=== PATIENT | male | born 1980 | race African-American/Black ===

== ENCOUNTER 2017-03-12 06:13 | Inpatient (IN) | payer MEDICAID ==
[~2017-03-12] VITALS: Ht 182.9 cm; Wt 82.9 kg
[2017-03-12] MEDS ORDERED: INSLAN SQ (06:23)
[2017-03-12] MEDS ORDERED: METF500T4 PO (06:23)
[2017-03-12 06:59] LABS: BASOPHILS % (AUTO) 0.4 % (0.0-2.0); EOSINOPHILS % (AUTO) 2.6 % (1.0-6.0); HEMATOCRIT 38.4 % (41-53); LYMPHOCYTES # (AUTO) 2.4 K/uL (1.0-4.8); LYMPHOCYTES % (AUTO) 34.8 % (22.0-44.0); MEAN CORPUSCULAR HEMOGLOBIN 28.8 pg (26.0-34.0); MEAN CORPUSCULAR HGB CONC 33.7 G/dL (31.0-37.0); MEAN CORPUSCULAR VOLUME 85 fL (80-100); MONOCYTES # (AUTO) 0.4 K/uL (0.1-1.0); MONOCYTES % (AUTO) 6.2 % (2.0-9.0); NEUTROPHILS # (AUTO) 3.8 K/uL (1.8-7.7); PLATELET COUNT (AUTO) 277 K/uL (150-450); RED CELL DISTRIBUTION WIDTH 13.3 % (11.5-14.5); WHITE BLOOD COUNT (AUTO) 6.8 K/uL (4.5-11.0)
[2017-03-12] MEDS ORDERED: HALOPERIDOL 5 MG TABLET PO PRN (07:00)
[2017-03-12] MEDS ORDERED: LORazepam 2 MG TABLET PO PRN (07:00)
[2017-03-12] MEDS ORDERED: ZOLPIDEM TARTRATE 10 MG TABLET PO PRN (07:00)
[2017-03-12 07:32] LABS: ANION GAP 9 mmol/L (8-16); CARBON DIOXIDE 25 mmol/L (22-29); CHLORIDE 103 mmol/L (98-107); CREATININE 1.04 mg/dL (0.60-1.30); POTASSIUM 3.4 mmol/L (3.5-5.1); SODIUM SERUM 137 mmol/L (136-145); UREA NITROGEN, BLOOD 19 mg/dL (7-18)
[2017-03-12 07:33] LABS: CALCIUM, TOTAL 8.6 mg/dL (8.8-10.5); GLOMERULAR FILTR. RATE CALC > 60 mL/min (>60)
[2017-03-12 07:36] LABS: ALANINE AMINOTRANSFERASE 26 U/L (12-78); ALBUMIN 3.2 g/dL (3.4-5.0); ASPARTATE AMINOTRANSFERASE 13 U/L (15-37); BILIRUBIN,TOTAL 0.6 mg/dL (0.1-1.0)
[2017-03-12 09:11] LABS: CHOL/HDL RATIO 6.6 (4.2-7.3); THYROID STIMULATING HORMONE 0.84 uIU/mL (0.36-3.74)
[2017-03-12 09:18] LABS: GLUCOSE,POINT OF CARE 246 MG/DL (70-110)
[2017-03-12 10:06] VITALS: BP 116/66
[2017-03-12] MEDS ORDERED: DEXTROSE 50%-WATER 25 GM/50 ML SYRINGE IVP PRN (10:15)
[2017-03-12] MEDS ORDERED: POTASSIUM CHLORIDE 20 MEQ ER TABLET PO ONE (10:15)
[2017-03-12 11:34] LABS: GLUCOSE,POINT OF CARE 254 MG/DL (70-110)
[2017-03-12] MEDS: INSULIN ASPART 100 UNITS/ML SQ PRN ×3 (11:48→21:04)
[2017-03-12] MEDS ORDERED: IBUPROFEN 400 MG TABLET PO PRN (15:45)
[2017-03-12] MEDS ORDERED: ACETAMINOPHEN 325 MG TABLET PO PRN (15:45)
[2017-03-12 16:15] VITALS: BP 120/78
[2017-03-12 17:23] LABS: GLUCOSE,POINT OF CARE 268 MG/DL (70-110)
[2017-03-12] MEDS: INSULIN DETEMIR 100 UNITS/ML SQ SCH (21:04)
[2017-03-12] MEDS: SIMVASTATIN 10 MG TABLET PO SCH (21:08)
[2017-03-12 21:09] LABS: GLUCOSE,POINT OF CARE 187 MG/DL (70-110)
[2017-03-13 05:35] LABS: GLUCOSE COMMENT 1 Received Meds; GLUCOSE,POINT OF CARE 176 MG/DL (70-110)
[2017-03-13] MEDS: INSULIN ASPART 100 UNITS/ML SQ PRN ×4 (06:49→21:40)
[2017-03-13 07:28] LABS: POTASSIUM 4.5 mmol/L (3.5-5.1); THYROID STIMULATING HORMONE 0.39 uIU/mL (0.36-3.74)
[2017-03-13 07:38] LABS: HEMOGLOBIN A1C 11.8 % (4.5-6.2)
[2017-03-13 08:05] VITALS: BP 107/63
[2017-03-13 11:17] LABS: GLUCOSE,POINT OF CARE 217 MG/DL (70-110)
[2017-03-13 16:29] VITALS: BP 113/74
[2017-03-13] MEDS: DIVALPROEX SODIUM 500 MG DR TABLET PO SCH (17:11)
[2017-03-13 17:23] LABS: GLUCOSE,POINT OF CARE 279 MG/DL (70-110)
[2017-03-13] MEDS: SIMVASTATIN 10 MG TABLET PO SCH (21:00)
[2017-03-13 21:18] LABS: GLUCOSE,POINT OF CARE 247 MG/DL (70-110)
[2017-03-13] MEDS: INSULIN DETEMIR 100 UNITS/ML SQ SCH (21:39)
[2017-03-14 06:28] LABS: GLUCOSE,POINT OF CARE 194 MG/DL (70-110)
[2017-03-14] MEDS: INSULIN ASPART 100 UNITS/ML SQ PRN ×4 (07:19→21:00)
[2017-03-14] MEDS: DIVALPROEX SODIUM 500 MG DR TABLET PO SCH ×2 (09:09→17:25)
[2017-03-14] MEDS: CITALOPRAM HYDROBROMIDE 20 MG TABLET PO SCH (09:10)
[2017-03-14 10:06] VITALS: BP 103/65
[2017-03-14 11:43] LABS: GLUCOSE,POINT OF CARE 230 MG/DL (70-110)
[2017-03-14 16:23] VITALS: BP 124/74
[2017-03-14 17:32] LABS: GLUCOSE COMMENT 1 FASTING; GLUCOSE,POINT OF CARE 166 MG/DL (70-110)
[2017-03-14] MEDS: SIMVASTATIN 10 MG TABLET PO SCH (20:21)
[2017-03-14 20:33] LABS: GLUCOSE,POINT OF CARE 250 MG/DL (70-110)
[2017-03-14] MEDS: INSULIN DETEMIR 100 UNITS/ML SQ SCH (21:00)
[2017-03-15 05:17] VITALS: BP 131/74
[2017-03-15 05:48] LABS: GLUCOSE COMMENT 1 Received Meds; GLUCOSE,POINT OF CARE 152 MG/DL (70-110)
[2017-03-15] MEDS: INSULIN ASPART 100 UNITS/ML SQ PRN ×4 (06:45→21:35)
[2017-03-15 08:43] VITALS: BP 111/73
[2017-03-15] MEDS: CITALOPRAM HYDROBROMIDE 20 MG TABLET PO SCH (09:16)
[2017-03-15] MEDS: DIVALPROEX SODIUM 500 MG DR TABLET PO SCH ×2 (09:16→17:00)
[2017-03-15 11:53] LABS: GLUCOSE,POINT OF CARE 205 MG/DL (70-110)
[2017-03-15 16:30] VITALS: BP 118/70
[2017-03-15 17:07] LABS: GLUCOSE,POINT OF CARE 189 MG/DL (70-110)
[2017-03-15] MEDS: INSULIN DETEMIR 100 UNITS/ML SQ SCH (21:35)
[2017-03-15] MEDS: SIMVASTATIN 10 MG TABLET PO SCH (21:36)
[2017-03-15 21:43] LABS: GLUCOSE,POINT OF CARE 367 MG/DL (70-110)
[2017-03-16 06:22] LABS: GLUCOSE,POINT OF CARE 271 MG/DL (70-110)
[2017-03-16] MEDS: INSULIN ASPART 100 UNITS/ML SQ PRN ×4 (07:08→20:06)
[2017-03-16 09:33] VITALS: BP 107/63
[2017-03-16] MEDS: CITALOPRAM HYDROBROMIDE 20 MG TABLET PO SCH (10:01)
[2017-03-16] MEDS: DIVALPROEX SODIUM 500 MG DR TABLET PO SCH ×2 (10:01→17:15)
[2017-03-16 11:59] LABS: GLUCOSE,POINT OF CARE 186 MG/DL (70-110)
[2017-03-16 16:58] VITALS: BP 110/60
[2017-03-16 17:32] LABS: GLUCOSE,POINT OF CARE 182 MG/DL (70-110)
[2017-03-16] MEDS: INSULIN DETEMIR 100 UNITS/ML SQ SCH (20:05)
[2017-03-16] MEDS: SIMVASTATIN 10 MG TABLET PO SCH (20:06)
[2017-03-16 20:12] LABS: GLUCOSE,POINT OF CARE 238 MG/DL (70-110)
[2017-03-17 06:13] VITALS: BP 101/71
[2017-03-17 06:43] LABS: GLUCOSE COMMENT 1 Received Meds; GLUCOSE,POINT OF CARE 152 MG/DL (70-110)
[2017-03-17] MEDS: INSULIN ASPART 100 UNITS/ML SQ PRN ×4 (06:58→20:54)
[2017-03-17 08:05] VITALS: BP 114/57
[2017-03-17] MEDS: CITALOPRAM HYDROBROMIDE 20 MG TABLET PO SCH (10:13)
[2017-03-17] MEDS: DIVALPROEX SODIUM 500 MG DR TABLET PO SCH ×2 (10:13→17:12)
[2017-03-17 11:22] LABS: GLUCOSE,POINT OF CARE 191 MG/DL (70-110)
[2017-03-17 16:34] VITALS: BP 111/61
[2017-03-17 17:17] LABS: GLUCOSE,POINT OF CARE 281 MG/DL (70-110)
[2017-03-17] MEDS: SIMVASTATIN 10 MG TABLET PO SCH (20:23)
[2017-03-17] MEDS: INSULIN DETEMIR 100 UNITS/ML SQ SCH (20:53)
[2017-03-17 21:17] LABS: GLUCOSE COMMENT 1 Received Meds; GLUCOSE,POINT OF CARE 344 MG/DL (70-110)
[2017-03-18 06:22] LABS: GLUCOSE,POINT OF CARE 206 MG/DL (70-110)
[2017-03-18] MEDS: INSULIN ASPART 100 UNITS/ML SQ PRN ×2 (07:02→11:54)
[2017-03-18] MEDS ORDERED: DIVA500T35 PO (08:35)
[2017-03-18] MEDS ORDERED: CITA20TA9 PO (08:35)
[2017-03-18] MEDS ORDERED: INSLAN SQ (08:36)
[2017-03-18] MEDS ORDERED: SIMV-259 PO (08:36)
[2017-03-18 09:19] VITALS: BP 109/58
[2017-03-18] MEDS: DIVALPROEX SODIUM 500 MG DR TABLET PO SCH (09:38)
[2017-03-18] MEDS: CITALOPRAM HYDROBROMIDE 20 MG TABLET PO SCH (09:38)
[2017-03-18 11:53] LABS: GLUCOSE COMMENT 1 Received Meds; GLUCOSE,POINT OF CARE 197 MG/DL (70-110)
== END 2017-03-18 14:51 | disposition home or self-care (01) | DRG 754 ==
LOC: EMS 06:15 → 3EI 07:53
PROVIDERS: ADMIT Psychiatry & Neurology Psychiatry; ATTEND Psychiatry & Neurology Psychiatry
DX: F32.9 Major depressive disorder, single episode, unspecified (principal); R45.851 Suicidal ideations; R44.3 Hallucinations, unspecified; E11.9 Type 2 diabetes mellitus without complications; E78.5 Hyperlipidemia, unspecified; E87.6 Hypokalemia; Z71.51 Drug abuse counseling and surveillance of drug abuser; F19.10 Other psychoactive substance abuse, uncomplicated
CPT/HCPCS: 82962; 83036; 84132; 84439; 84443; 99285; G0480

== ENCOUNTER 2017-04-10 13:27 | Inpatient (IN) | payer MEDICAID ==
[~2017-04-10] VITALS: Ht 182.9 cm; Wt 84.1 kg
[~2017-04-10 13:27] MED LIST: CITA20TA9 PO; DIVA500T35 PO; INSLAN SQ; SIMV-259 PO
[2017-04-10] MEDS ORDERED: METF500T4 PO (13:37)
[2017-04-10 13:43] LABS: GLUCOSE,POINT OF CARE 370 MG/DL (70-110)
[2017-04-10 14:01] LABS: BASOPHILS % (AUTO) 0.7 % (0.0-2.0); EOSINOPHILS % (AUTO) 3.2 % (1.0-6.0); HEMATOCRIT 38.8 % (41-53); HEMOGLOBIN 13.1 g/dL (13.5-17.5); LYMPHOCYTES # (AUTO) 1.8 K/uL (1.0-4.8); LYMPHOCYTES % (AUTO) 32.2 % (22.0-44.0); MEAN CORPUSCULAR HEMOGLOBIN 28.7 pg (26.0-34.0); MEAN CORPUSCULAR HGB CONC 33.8 G/dL (31.0-37.0); MEAN CORPUSCULAR VOLUME 85 fL (80-100); MONOCYTES # (AUTO) 0.5 K/uL (0.1-1.0); MONOCYTES % (AUTO) 9.5 % (2.0-9.0); NEUTROPHILS % (AUTO) 54.4 % (40.0-70.0); PLATELET COUNT (AUTO) 266 K/uL (150-450); RED BLOOD CELL COUNT(AUTO) 4.57 MIL/uL (4.50-5.90); RED CELL DISTRIBUTION WIDTH 13.9 % (11.5-14.5); WHITE BLOOD COUNT (AUTO) 5.6 K/uL (4.5-11.0)
[2017-04-10] MEDS ORDERED: INSULIN REGULAR, HUMAN 100 UNITS/ML IVP ONE (14:15)
[2017-04-10] MEDS ORDERED: SODIUM CHLORIDE 0.9% 1,000 ML IV ONE (14:15)
[2017-04-10 14:17] LABS: ANION GAP 10 mmol/L (8-16); CARBON DIOXIDE 24 mmol/L (22-29); CHLORIDE 99 mmol/L (98-107); CREATININE 1.21 mg/dL (0.60-1.30); GLOMERULAR FILTR. RATE CALC > 60 mL/min (>60); POTASSIUM 4.1 mmol/L (3.5-5.1); SODIUM SERUM 133 mmol/L (136-145); UREA NITROGEN, BLOOD 27 mg/dL (7-18)
[2017-04-10 14:20] LABS: ALANINE AMINOTRANSFERASE 28 U/L (12-78); ALBUMIN 3.7 g/dL (3.4-5.0); ASPARTATE AMINOTRANSFERASE 19 U/L (15-37); BILIRUBIN,TOTAL 1.2 mg/dL (0.1-1.0); TOTAL PROTEIN, SERUM 7.4 g/dL (6.4-8.2)
[2017-04-10] MEDS ORDERED: HALOPERIDOL 5 MG TABLET PO PRN (16:15)
[2017-04-10] MEDS ORDERED: LORazepam 2 MG TABLET PO PRN (16:15)
[2017-04-10 16:27] LABS: GLUCOSE COMMENT 1 Doctor Notified; GLUCOSE,POINT OF CARE 187 MG/DL (70-110)
[2017-04-10 17:53] VITALS: BP 119/74
[2017-04-10] MEDS ORDERED: DEXTROSE 50%-WATER 25 GM/50 ML SYRINGE IVP PRN (18:45)
[2017-04-10] MEDS: DIVALPROEX SODIUM 500 MG DR TABLET PO SCH (18:49)
[2017-04-10] MEDS ORDERED: INSULIN DETEMIR 100 UNITS/ML SQ SCH (21:00)
[2017-04-10] MEDS: INSULIN ASPART 100 UNITS/ML SQ PRN ×2 (21:37→21:43)
[2017-04-10 21:43] LABS: GLUCOSE COMMENT 1 Received Meds; GLUCOSE,POINT OF CARE 269 MG/DL (70-110)
[2017-04-11 06:13] LABS: GLUCOSE,POINT OF CARE 166 MG/DL (70-110)
[2017-04-11] MEDS: MetFORMIN HCL 500 MG TABLET PO SCH ×2 (06:48→17:28)
[2017-04-11] MEDS: INSULIN ASPART 100 UNITS/ML SQ PRN ×4 (06:50→21:17)
[2017-04-11 10:06] VITALS: BP 105/57
[2017-04-11] MEDS: CITALOPRAM HYDROBROMIDE 20 MG TABLET PO SCH (11:37)
[2017-04-11] MEDS: SIMVASTATIN 10 MG TABLET PO SCH (11:37)
[2017-04-11] MEDS: DIVALPROEX SODIUM 500 MG DR TABLET PO SCH ×2 (11:37→17:24)
[2017-04-11 12:04] LABS: GLUCOSE COMMENT 1 Received Meds; GLUCOSE,POINT OF CARE 216 MG/DL (70-110)
[2017-04-11 16:30] VITALS: BP 110/69
[2017-04-11] MEDS ORDERED: IBUPROFEN 400 MG TABLET PO PRN (16:45)
[2017-04-11] MEDS ORDERED: ACETAMINOPHEN 325 MG TABLET PO PRN (16:45)
[2017-04-11 17:28] LABS: GLUCOSE,POINT OF CARE 164 MG/DL (70-110)
[2017-04-11 20:58] LABS: GLUCOSE,POINT OF CARE 164 MG/DL (70-110)
[2017-04-11] MEDS: INSULIN DETEMIR 100 UNITS/ML SQ SCH (21:16)
[2017-04-11] MEDS: ZOLPIDEM TARTRATE 10 MG TABLET PO PRN (21:26)
[2017-04-12 05:43] LABS: GLUCOSE COMMENT 1 Received Meds; GLUCOSE,POINT OF CARE 206 MG/DL (70-110)
[2017-04-12 06:31] VITALS: BP 111/68
[2017-04-12] MEDS: INSULIN ASPART 100 UNITS/ML SQ PRN ×3 (06:44→17:27)
[2017-04-12] MEDS: MetFORMIN HCL 500 MG TABLET PO SCH ×2 (07:07→17:02)
[2017-04-12 08:00] LABS: ANION GAP 7 mmol/L (8-16); CALCIUM, TOTAL 9.1 mg/dL (8.8-10.5); CARBON DIOXIDE 27 mmol/L (22-29); CHLORIDE 105 mmol/L (98-107); CREATININE 0.69 mg/dL (0.60-1.30); GLOMERULAR FILTR. RATE CALC > 60 mL/min (>60); POTASSIUM 4.3 mmol/L (3.5-5.1); SODIUM SERUM 139 mmol/L (136-145); UREA NITROGEN, BLOOD 16 mg/dL (7-18)
[2017-04-12 08:05] VITALS: BP 123/77
[2017-04-12] MEDS: SIMVASTATIN 10 MG TABLET PO SCH (08:18)
[2017-04-12] MEDS: CITALOPRAM HYDROBROMIDE 20 MG TABLET PO SCH (08:18)
[2017-04-12] MEDS: DIVALPROEX SODIUM 500 MG DR TABLET PO SCH ×2 (08:18→17:02)
[2017-04-12 11:53] LABS: GLUCOSE COMMENT 1 Received Meds; GLUCOSE,POINT OF CARE 184 MG/DL (70-110)
[2017-04-12 17:08] LABS: GLUCOSE COMMENT 1 FASTING; GLUCOSE,POINT OF CARE 208 MG/DL (70-110)
[2017-04-12 17:20] VITALS: BP 123/85
[2017-04-12] MEDS: ZOLPIDEM TARTRATE 10 MG TABLET PO PRN (20:09)
[2017-04-12 20:28] LABS: GLUCOSE,POINT OF CARE 130 MG/DL (70-110)
[2017-04-12] MEDS: INSULIN DETEMIR 100 UNITS/ML SQ SCH (21:25)
[2017-04-13 06:23] LABS: GLUCOSE,POINT OF CARE 123 MG/DL (70-110)
[2017-04-13] MEDS: INSULIN ASPART 100 UNITS/ML SQ PRN ×4 (06:58→20:25)
[2017-04-13] MEDS: MetFORMIN HCL 500 MG TABLET PO SCH ×2 (07:01→17:18)
[2017-04-13 08:39] VITALS: BP 131/57
[2017-04-13] MEDS: CITALOPRAM HYDROBROMIDE 20 MG TABLET PO SCH (09:43)
[2017-04-13] MEDS: SIMVASTATIN 10 MG TABLET PO SCH (09:43)
[2017-04-13] MEDS: DIVALPROEX SODIUM 500 MG DR TABLET PO SCH ×2 (09:43→16:43)
[2017-04-13 11:48] LABS: GLUCOSE,POINT OF CARE 189 MG/DL (70-110)
[2017-04-13 16:48] LABS: GLUCOSE COMMENT 1 Received Meds; GLUCOSE,POINT OF CARE 194 MG/DL (70-110)
[2017-04-13 19:30] VITALS: BP 122/78
[2017-04-13] MEDS: INSULIN DETEMIR 100 UNITS/ML SQ SCH (20:24)
[2017-04-13 20:27] LABS: GLUCOSE COMMENT 1 Received Meds; GLUCOSE,POINT OF CARE 297 MG/DL (70-110)
[2017-04-13] MEDS: ZOLPIDEM TARTRATE 10 MG TABLET PO PRN (20:40)
[2017-04-14 06:23] LABS: GLUCOSE COMMENT 1 Received Meds; GLUCOSE,POINT OF CARE 174 MG/DL (70-110)
[2017-04-14] MEDS: MetFORMIN HCL 500 MG TABLET PO SCH ×2 (07:11→17:29)
[2017-04-14] MEDS: INSULIN ASPART 100 UNITS/ML SQ PRN ×4 (07:11→20:34)
[2017-04-14 08:41] VITALS: BP 100/58
[2017-04-14] MEDS: SIMVASTATIN 10 MG TABLET PO SCH (10:17)
[2017-04-14] MEDS: DIVALPROEX SODIUM 500 MG DR TABLET PO SCH ×2 (10:17→16:04)
[2017-04-14] MEDS: CITALOPRAM HYDROBROMIDE 20 MG TABLET PO SCH (10:17)
[2017-04-14 11:42] LABS: GLUCOSE,POINT OF CARE 71 MG/DL (70-110)
[2017-04-14 11:58] LABS: GLUCOSE,POINT OF CARE 153 MG/DL (70-110)
[2017-04-14 16:12] LABS: GLUCOSE COMMENT 1 Received Meds; GLUCOSE,POINT OF CARE 236 MG/DL (70-110)
[2017-04-14 18:06] VITALS: BP 117/88
[2017-04-14 20:11] LABS: GLUCOSE COMMENT 1 Received Meds; GLUCOSE,POINT OF CARE 208 MG/DL (70-110)
[2017-04-14] MEDS: INSULIN DETEMIR 100 UNITS/ML SQ SCH (20:34)
[2017-04-14] MEDS: ZOLPIDEM TARTRATE 10 MG TABLET PO PRN (20:38)
[2017-04-15 05:48] LABS: GLUCOSE COMMENT 1 Received Meds; GLUCOSE,POINT OF CARE 195 MG/DL (70-110)
[2017-04-15] MEDS: INSULIN ASPART 100 UNITS/ML SQ PRN ×4 (06:26→20:24)
[2017-04-15] MEDS: MetFORMIN HCL 500 MG TABLET PO SCH ×2 (06:59→16:56)
[2017-04-15] MEDS: DIVALPROEX SODIUM 500 MG DR TABLET PO SCH ×2 (09:10→16:12)
[2017-04-15] MEDS: SIMVASTATIN 10 MG TABLET PO SCH (09:10)
[2017-04-15] MEDS: CITALOPRAM HYDROBROMIDE 20 MG TABLET PO SCH (09:10)
[2017-04-15 09:17] VITALS: BP 119/72
[2017-04-15 11:53] LABS: GLUCOSE COMMENT 1 Received Meds; GLUCOSE,POINT OF CARE 181 MG/DL (70-110)
[2017-04-15 16:12] LABS: GLUCOSE COMMENT 1 Received Meds; GLUCOSE,POINT OF CARE 188 MG/DL (70-110)
[2017-04-15 16:30] VITALS: BP 108/64
[2017-04-15 20:17] LABS: GLUCOSE COMMENT 1 Received Meds; GLUCOSE,POINT OF CARE 228 MG/DL (70-110)
[2017-04-15] MEDS: INSULIN DETEMIR 100 UNITS/ML SQ SCH (20:23)
[2017-04-15] MEDS: ZOLPIDEM TARTRATE 10 MG TABLET PO PRN (20:25)
[2017-04-16 06:07] LABS: GLUCOSE COMMENT 1 Received Meds; GLUCOSE,POINT OF CARE 164 MG/DL (70-110)
[2017-04-16] MEDS: MetFORMIN HCL 500 MG TABLET PO SCH ×2 (06:32→17:54)
[2017-04-16] MEDS: INSULIN ASPART 100 UNITS/ML SQ PRN ×4 (06:57→21:17)
[2017-04-16] MEDS: DIVALPROEX SODIUM 500 MG DR TABLET PO SCH ×2 (09:25→16:53)
[2017-04-16] MEDS: CITALOPRAM HYDROBROMIDE 20 MG TABLET PO SCH (09:25)
[2017-04-16] MEDS: SIMVASTATIN 10 MG TABLET PO SCH (09:25)
[2017-04-16 10:14] VITALS: BP 120/77
[2017-04-16 11:57] LABS: GLUCOSE,POINT OF CARE 208 MG/DL (70-110)
[2017-04-16 16:30] VITALS: BP 124/89
[2017-04-16 16:57] LABS: GLUCOSE,POINT OF CARE 335 MG/DL (70-110)
[2017-04-16] MEDS: ZOLPIDEM TARTRATE 10 MG TABLET PO PRN (20:28)
[2017-04-16 20:37] LABS: GLUCOSE,POINT OF CARE 222 MG/DL (70-110)
[2017-04-16] MEDS: INSULIN DETEMIR 100 UNITS/ML SQ SCH (21:15)
[2017-04-17 06:07] LABS: GLUCOSE,POINT OF CARE 203 MG/DL (70-110)
[2017-04-17] MEDS: MetFORMIN HCL 500 MG TABLET PO SCH ×2 (06:54→16:51)
[2017-04-17] MEDS: INSULIN ASPART 100 UNITS/ML SQ PRN ×4 (07:03→21:17)
[2017-04-17 09:47] VITALS: BP 100/52
[2017-04-17] MEDS: CITALOPRAM HYDROBROMIDE 20 MG TABLET PO SCH (12:02)
[2017-04-17] MEDS: DIVALPROEX SODIUM 500 MG DR TABLET PO SCH ×2 (12:02→16:22)
[2017-04-17] MEDS: SIMVASTATIN 10 MG TABLET PO SCH (12:03)
[2017-04-17 12:07] LABS: GLUCOSE,POINT OF CARE 205 MG/DL (70-110)
[2017-04-17 16:30] VITALS: BP 111/70
[2017-04-17 16:32] LABS: GLUCOSE,POINT OF CARE 282 MG/DL (70-110)
[2017-04-17] MEDS: ZOLPIDEM TARTRATE 10 MG TABLET PO PRN (20:20)
[2017-04-17 20:27] LABS: GLUCOSE,POINT OF CARE 326 MG/DL (70-110)
[2017-04-17] MEDS: INSULIN DETEMIR 100 UNITS/ML SQ SCH (21:15)
[2017-04-18] MEDS ORDERED: CITA20TA9 PO (00:30)
[2017-04-18] MEDS ORDERED: DIVA500T35 PO (00:30)
[2017-04-18] MEDS ORDERED: SIMV-259 PO (02:58)
[2017-04-18] MEDS ORDERED: METF500T4 PO (02:59)
[2017-04-18 05:52] LABS: GLUCOSE,POINT OF CARE 133 MG/DL (70-110)
[2017-04-18] MEDS: MetFORMIN HCL 500 MG TABLET PO SCH (06:46)
[2017-04-18 08:30] VITALS: BP 124/79
[2017-04-18] MEDS: CITALOPRAM HYDROBROMIDE 20 MG TABLET PO SCH (09:37)
[2017-04-18] MEDS: SIMVASTATIN 10 MG TABLET PO SCH (09:37)
[2017-04-18] MEDS: DIVALPROEX SODIUM 500 MG DR TABLET PO SCH (09:37)
== END 2017-04-18 09:20 | disposition home or self-care (01) | DRG 750 ==
LOC: EMS 13:30 → 3EI 16:30
PROVIDERS: ATTEND Psychiatry & Neurology Psychiatry
DX: F25.1 Schizoaffective disorder, depressive type (principal); E11.65 Type 2 diabetes mellitus with hyperglycemia; R45.851 Suicidal ideations; F15.10 Other stimulant abuse, uncomplicated; F17.210 Nicotine dependence, cigarettes, uncomplicated; E78.5 Hyperlipidemia, unspecified; D64.9 Anemia, unspecified; F41.9 Anxiety disorder, unspecified; Z91.14 Patient's other noncompliance with medication regimen; Z59.0 Homelessness; Z79.4 Long term (current) use of insulin; Z79.899 Other long term (current) drug therapy
CPT/HCPCS: 82948; 82962; 83036; 87081; 96361; 96374; 99285; 99406; G0480; J1815; J7030